=== PATIENT | male | born 1995 | race Two or more races ===

== ENCOUNTER 2018-07-22 08:18 | Inpatient (IN) | payer OTHER ==
--- NOTE | 2018-07-21 15:19 | NUR ---
[employer] translation services used to obtained medical hystory with chemicals distiller Arianna ID # [id number].
[~2018-07-22] VITALS: Ht 172.7 cm; Wt 63.5 kg
[2018-07-22] VITALS (11 sets, daily range): BP systolic 96–132; BP diastolic 48–74
[~2018-07-22 08:18] MED LIST: Bacitracin 50000 Units Vial ONE; Gelfoam Size TOPIC ONE; NKM; Ropivacaine 5mg/ml Vial 30ml INJ ONE; Thrombin 5000 units TOPIC ONE; Vancomycin 1gm vial IVPB ONE; ceFAZolin sod 2 GM in D5W 110 ML IVPB ONE
[2018-07-22] MEDS ORDERED: fentaNYL 100 mcg/2 mL IV ONE (09:10)
[2018-07-22] MEDS ORDERED: Midazolam 2mg/2ml Inj ONE (09:10)
[2018-07-22] MEDS ORDERED: Lidocaine 1% MPF 10mg/ml 5ml ONE (09:19)
[2018-07-22] MEDS ORDERED: Propofol 1,000mg/ 100ml btl IV ONE (10:00)
[2018-07-22] MEDS ORDERED: Rocuronium Bromide 50mg/5ml Inj IV ONE (10:09)
[2018-07-22] MEDS ORDERED: TransDerm Scop 1.5mg/72HR Patch TDERMAL ONE (10:09)
[2018-07-22] MEDS ORDERED: Succinylcholine 20mg/ml 10ml vial ONE (10:10)
--- NOTE | 2018-07-22 11:50 | Pre-Procedure Note/Attestation ---
Pre-Procedure Note/Attestation Complete Prior to Procedure Planned Procedure: left Procedure Narrative: Left sided L45, L5S1 microdiscectomy hemilaminotomy foraminotomy baxano decompression Indications for Procedure Pre-Operative Diagnosis: Herniation L45,5S1, foraminal stenosis Attestation I attest that I discussed the nature of the procedure; its benefits; risks and complications; and alternatives (and the risks and benefits of such alternatives ), prior to the procedure, with the patient (or the patient's legal parts counter representative). I attest that, if there was a reasonable possibility of needing a blood transfusion, the patient (or the patient's legal parts counter representative) was given the [place] Department of [employer] Services standardized written summary, pursuant to the Apolinar Nisha Blood Safety Act ([place] Health and Safety Code # 1645, as amended). I attest that I re-evaluated the patient just prior to the surgery and that there has been no change in the patient's H&P, except as documented below: Taj Duran MD July 22, 2018 11:50
--- NOTE | 2018-07-22 11:51 | Brief Operative Note ---
Immediate Post Operative Note Operative Note Chief Complaint: Leg pain left radic, back pain Pre-op Diagnosis: Herniation L45,5S1, foraminal stenosis Procedure: Left sided L45, L5S1 microdiscectomy hemilaminotomy foraminotomy baxano decompression Post-op Diagnosis: same as pre-op Findings: consistent w/pre-op dx studies Surgeon: Renee Housing Case Manager: Luis Armando Anesthesiologist: YONI Anesthesia: general Specimen: none Complications: none Condition: stable Fluids: ivf Estimated Blood Loss: minimal Drains: none Implant(s) used?: Taj Joyner MD July 22, 2018 11:51
[2018-07-22] MEDS ORDERED: Glycopyrrolate 0.2mg/ml 1ml Vial ONE (12:00)
[2018-07-22] MEDS ORDERED: Neostigmine 1mg/ml 10ml Inj ONE (12:00)
[2018-07-22] MEDS ORDERED: Ketorolac 30mg Inj ONE (12:00)
[2018-07-22] MEDS ORDERED: LR 1000ml ONE (12:00)
[2018-07-22] MEDS ORDERED: Morphine Sulfate 10mg/ml Inj ONE (13:10)
--- NOTE | 2018-07-22 13:23 | Anethesia Preoperative Eval ---
Anesthesia Pre-op PMH/ROS General Date of Evaluation: July 22, 2018 Time of Evaluation: 12:08 Anesthesiologist: Jamin ASA Score: ASA 2 Mallampati Score Class I : Soft palate, uvula, fauces, pillars visible Class II: Soft palate, uvula, fauces visible Class III: Soft palate, base of uvula visible Class IV: Only hard plate visible Mallampati Classification: Class II Surgeon: Renee Diagnosis: Lumbar radiculopathy Surgical Procedure: L4 to S1 laminotomy Anesthesia History: none Family History: no anesthesia problems Allergies: Coded Allergies: No Known Allergies (Unverified , 07/21/18) Medications: see eMAR Patient NPO?: Yes NPO Date: July 21, 2018 NPO Time: 2229 Past Medical History Cardiovascular: Denies: HTN, CAD, ME, valve dz, arrhythmia, other Pulmonary: Denies: asthma, COPD, VALERIANO, other Gastrointestinal/Genitourinary: Reports: GERD; Denies: CRI, ESRD, other Neurologic/Psychiatric: Denies: dementia, CVA, depression/anxiety, TIA, other Endocrine: Denies: DM, hypothyroidism, steroids, other HEENT: Denies: cataract (L), cataract (R), glaucoma, EKUK (L), EKUK (R), other Hematology/Immune: Denies: anemia, DVT, bleeding disorder, other Musculoskeletal/Integumentary: Denies: OA, RA, DJD, DDD, edema, other PMH Narrative: as above PSxH Narrative: None Anesthesia Pre-op Phys. Exam Physician Exam Last Vital Signs Date Time Temp Pulse Resp B/P (MAP) Pulse Ox O2 Delivery O2 Flow Rate FiO2 07/22/18 09:32 Room Air 07/22/18 09:14 98.1 71 20 108/69 (82) 99 Constitutional: NAD Neurologic: CN 2-12 intact Cardiovascular: RRR, no M/R/G Respiratory: CTA Gastrointestinal: S/NT/ND Airway Exam Mallampati Score: Class II MO: full Neck: flexible ROM: full Teeth: intact Dentures: no upper, no lower Anesthesia Pre-op A/P Labs see chart Studies Pre-op Studies: EKG - NSR Risk Assessment & Plan Assessment: ASA 2 Plan: GA with ETT prone position neuromonitoring Status Change Before Surgery: No Pre-Antibiotics Drug: Ancef 2gr Given Within 1 Hr of Incision: Yes Time Given: 12:46 Michael Neville MD July 22, 2018 13:23
[2018-07-22] MEDS ORDERED: LR 1000ml 1,000 ML IVLG SCH (13:24)
[2018-07-22] MEDS ORDERED: Sodium Chloride 10ml vial INJ ONE (13:29)
[2018-07-22] MEDS ORDERED: ePHEDrine 50mg/ml Inj ONE (13:29)
[2018-07-22] MEDS ORDERED: Midazolam 2mg/2ml Inj IVP PRN (13:30)
[2018-07-22] MEDS ORDERED: Meperidine 50mg/ml Inj(FOR RIGORS ONLY) IV PRN ×2 (13:30→15:00)
[2018-07-22] MEDS ORDERED: Ketorolac 30mg Inj IV PRN (13:30)
[2018-07-22] MEDS ORDERED: Acetaminophen (Non formulary) 100 ML IV ONE (13:30)
[2018-07-22] MEDS ORDERED: DiphenhydrAMINE 50mg/ml Inj IVP PRN (13:30)
[2018-07-22] MEDS ORDERED: Metoclopramide 10mg/2ml Inj IVP PRN ×3 (13:30→15:33)
[2018-07-22] MEDS ORDERED: Hydromorphone 0.5mg/0.5ml inj IVP PRN (13:30)
[2018-07-22] MEDS ORDERED: Thrombin 5000 units TOPIC ONE (13:47)
--- NOTE | 2018-07-22 14:38 | Immediate Post-Op Evaluation ---
Immediate Post-Op Evalulation Immediate Post-Op Evalulation Procedure: L4 to S1 laminotomy with decompression and Baxano foraminotomy Date of Evaluation: July 22, 2018 Time of Evaluation: 14:37 IV Fluids: 1000 Blood Products: none Estimated Blood Loss: 50 Urinary Output: 200 Blood Pressure Systolic: 104 Blood Pressure Diastolic: 58 Pulse Rate: 75 Respiratory Rate: 20 O2 Sat by Pulse Oximetry: 99 Temperature (Fahrenheit): 97.6 Pain Score (1-10): 1 Nausea: No Vomiting: No Complications none Patient Status: patent, extubated, none Hydration Status: adequate Michael Neville MD July 22, 2018 14:38
[2018-07-22] MEDS ORDERED: Meperidine 50mg/ml Inj(FOR RIGORS ONLY) ONE (15:00)
[2018-07-22] MEDS ORDERED: Naloxone 0.4mg/ml Inj IVP PRN (15:33)
[2018-07-22] MEDS ORDERED: Milk of Magnesia 30ml Ud ORAL PRN (15:34)
--- NOTE | 2018-07-22 15:35 | NUR ---
NURSE NOTES: Patient received from PACU via bed to 320-2 at 1535. Patient alert, oriented x4, calm. German speaking, girlfriend at bedside, manager hydraulic. No SOB on O2 2LNC, no NV. Reports pain to lower back 4/10, ice pack to lower back. Back dressing CDI. Instructed on proper alignment and log rolling. Called RT for IS, instructed patient on CDB and ankle ROM. IVF infusing to right hand as ordered. Bilateral SCDs on. CMS+, skin warm, wiggles toes, no NT, pedal pulses palpable, capillary refill <3 seconds. Oriented patient to room. Call light in reach, bed in lowest position, will continue to monitor.
[2018-07-22] MEDS ORDERED: Chloraseptic Spray 20mL Bottle ORAL PRN (15:36)
[2018-07-22] MEDS ORDERED: HYDROmorphone 1mg/ml Carpuject IVP PRN (15:37)
[2018-07-22] MEDS ORDERED: HYDROcodone/Acetamin 7.5/325 tab ORAL PRN (15:37)
[2018-07-22] MEDS ORDERED: HYDROcodone/Acetamin 5/325 tab ORAL PRN (15:37)
--- NOTE | 2018-07-22 15:37 | NUR ---
CASE MANAGEMENT:REVIEW 23 YR OLD MALE HERE FOR ELECTIVE SURGERY SI: SPINAL HERNIATION AND STENOSIS 98.1 71 20 108/69 99% ON RA IS: TO SURGERY FOR: MICRODISCECTOMY HEMILAMINOTOMY FORAMINOTOMY BAXANO DECOMPRESSION : TO MED/SURG 3 EAST POST OP
[2018-07-22] MEDS ORDERED: Morphine Sulfate 4mg/ml Inj (IV USE ONLY) IV PRN ×2 (15:38)
[2018-07-22] MEDS ORDERED: Morphine Sulfate 2mg/ml Inj(IV/IM USE ONLY) IV PRN (15:39)
[2018-07-22] MEDS: NS w/KCl 20mEq 1000ml 1,000 ML IV SCH (16:35)
--- NOTE | 2018-07-22 17:22 | 48 Hour Post Anesthesia Eval ---
Post Anesthesia Evaluation Procedure: L4 to S1 laminotomy with decompression and Baxano foraminotomy Date of Evaluation: July 22, 2018 Time of Evaluation: 17:20 Blood Pressure Systolic: 124 0: 76 Pulse Rate: 72 Respiratory Rate: 20 Temperature (Fahrenheit): 97.8 O2 Sat by Pulse Oximetry: 98 Airway: patent Nausea: No Vomiting: No Pain Intensity: 3 Hydration Status: adequate Cardiopulmonary Status: stable Mental Status/LOC: patient returned to baseline Follow-up Care/Observations: n/a Post-Anesthesia Complications: none Follow-up care needed: ready to discharge Michael Neville MD July 22, 2018 17:22
[2018-07-22] MEDS: Dexamethasone 4mg/ml vial IVP SCH (18:01)
[2018-07-22] MEDS: Docusate 100mg cap ORAL SCH (18:01)
--- NOTE | 2018-07-22 19:55 | NUR ---
HAND-OFF: Report given to Ewa RAPHAEL.
--- NOTE | 2018-07-22 20:00 | NUR ---
NURSE NOTES: PATIENT IN BED. ON O2 2L VIA N/C. NO SOB, NO ACUTE DISTRESS. IV ON RH INTACT, PATENT RUNNING IVF. BED IN LOWEST POSITION, LOCKED, ALARMS ON. CALL LIGHT IN REACH.
[2018-07-22] MEDS: ceFAZolin sod 1 GM in D5W 55 ML IV SCH (21:18)
[2018-07-22] MEDS: HYDROcodone/Acetamin 7.5/325 tab ORAL PRN (22:35)
[2018-07-23] VITALS: BP 100/55
[2018-07-23] MEDS: Dexamethasone 4mg/ml vial IVP SCH ×2 (00:08→05:32)
[2018-07-23] MEDS: NS w/KCl 20mEq 1000ml 1,000 ML IV SCH (02:32)
[2018-07-23 04:00] VITALS: BP 100/57
[2018-07-23] MEDS: ceFAZolin sod 1 GM in D5W 55 ML IV SCH (05:00)
--- NOTE | 2018-07-23 07:25 | NUR ---
HAND-OFF: Report given to HALIMA RAPHAEL.
--- NOTE | 2018-07-23 07:30 | NUR ---
NURSE NOTES: AWAKE.ALERT. PAIN SCALE 5/10. GIVEN NORCO 7.5/325 1 TAB PO. BACK DRESSING DRY AND INTACT. NO NUMBNESS /TINGLING BLE. IN NO DISTRESS.
[2018-07-23] MEDS: HYDROcodone/Acetamin 7.5/325 tab ORAL PRN (07:40)
[2018-07-23 08:00] VITALS: BP 112/64
--- NOTE | 2018-07-23 08:00 | General Progress Note ---
Assessment/Plan Assessment/Plan: Herniation L45,5S1, foraminal stenosis Left sided L45, L5S1 microdiscectomy hemilaminotomy foraminotomy baxano decompression PLAN 1. incentive spirometry 2.SCDs 3. PT evaluation and therapy 4. Hydration 5. Pain management 6. discharge once stable with outpatient follow up Subjective Allergies: Coded Allergies: No Known Allergies (Unverified , 07/21/18) Subjective asked to follow Objective Last 24 Hour Vital Signs Date Time Temp Pulse Resp B/P (MAP) Pulse Ox O2 Delivery O2 Flow Rate FiO2 07/23/18 07:33 98 Nasal Cannula 3.0 32 07/23/18 07:33 Nasal Cannula 3.0 32 07/23/18 04:00 98.0 82 20 100/57 (71) 99 07/23/18 00:00 98.8 71 20 100/55 (70) 98 07/22/18 21:00 Room Air 07/22/18 20:00 97.9 78 18 107/60 (76) 98 07/22/18 17:22 72 20 98 07/22/18 17:00 98.4 95 20 132/74 (93) 97 07/22/18 16:15 97.7 88 20 116/74 (88) 100 07/22/18 15:45 97.4 07/22/18 15:30 97.4 78 18 107/56 100 Nasal Cannula 3 07/22/18 15:20 82 15 105/57 100 Nasal Cannula 3 07/22/18 15:00 84 17 106/64 100 Nasal Cannula 3 07/22/18 14:50 89 16 115/65 100 Nasal Cannula 3 07/22/18 14:40 84 16 107/61 100 Simple Mask 6 07/22/18 14:38 80 15 104/58 100 Simple Mask 6 07/22/18 14:38 75 20 99 07/22/18 14:36 97.1 73 14 96/48 100 Simple Mask 6 07/22/18 09:51 100 Nasal Cannula 3.0 32 07/22/18 09:51 Nasal Cannula 3.0 32 07/22/18 09:32 Room Air 07/22/18 09:14 98.1 71 20 108/69 (82) 99 Intake and Output 07/22/18 07/23/18 19:00 07:00 Intake Total 2209 ml 1360 ml Output Total 250 ml 800 ml Balance 1959 ml 560 ml Intake Oral 709 ml 300 ml IV Total 1500 ml 1060 ml Output Urine Total 200 ml 800 ml Estimated Blood Loss 50 ml # Voids 1 2 Height (Feet): 5 Height (Inches): 8.00 Weight (Pounds): 140 Objective WDWN NAD clear breath sounds bilaterally without rhonchi or wheeze [id number] without MRG NABS nontender no HSM no CCE nonfocal Umang eBrger MD July 23, 2018 08:00
[2018-07-23] MEDS: Docusate 100mg cap ORAL SCH (08:29)
[2018-07-23] MEDS ORDERED: SOMA350 MG PO (08:48)
[2018-07-23] MEDS ORDERED: NORCO 10-325 T1 EACH ORAL (08:48)
--- NOTE | 2018-07-23 09:30 | NUR ---
NURSE NOTES: DISCHARGED HOME ACCPD BY GIRLFRIEND IN STABLE CONDITION. DC INSTRUCTIONS AND RX GIVEN.
--- NOTE | 2018-07-23 21:30 | Operative Note - Dictated ---
DATE OF OPERATION: 07/22/2018 SURGEON: Taj Duran MD, Orthopaedic Spine Surgeon. BEHAVIOUR SUPPORT TEACHER SURGEON: Franco Durán M.D. ANESTHESIA: General endotracheal anesthesia. PREOPERATIVE DIAGNOSES: 1. Intractable back pain. 2. Intractable leg pain. 3. Worsening radiculopathy. 4. Weakness. 5. Herniated nucleus pulposus, L4-L5, L5-S1 herniation. 6. Neural foraminal stenosis, L4-L5, L5-S1. POSTOPERATIVE DIAGNOSES: 1. Intractable back pain. 2. Intractable leg pain. 3. Worsening radiculopathy. 4. Weakness. 5. Herniated nucleus pulposus, L4-L5, L5-S1 herniation. 6. Neural foraminal stenosis, L4-L5, L5-S1. PROCEDURES PERFORMED: 1. Left-sided L4-L5, L5-S1 microdiscectomy. 2. L4-L5, L5-S1 hemilaminotomy, foraminotomy, and medial facetectomy. 3. L4-L5, L5-S1 neural foraminotomy through a transpedicular intraforaminal approach. 4. Use of intraoperative microscope. 5. Supervision and interpretation of intraoperative fluoroscopy. 6. Supervision and interpretation of somatosensory-evoked potential and free-running EMG monitoring. ESTIMATED BLOOD LOSS: Less than 100 mL. COMPLICATIONS: None. INDICATIONS FOR THE PROCEDURE: Murtaza presents for intractable back pain and radiculopathy. The patient tried and failed a prolonged course of conservative management, including but not limited to chiropractic therapy, physical therapy, nonsteroidal anti-inflammatory drugs, medication, ice packs as well as epidural injection. Despite these therapies, the patient still developed recalcitrant pain and elected for definitive management in the form of left-sided L4-L5 and L5-S1 microdiscectomy; L4-L5 and L5-S1 hemilaminotomy, foraminotomy, and medial facetectomy; L4-L5 and L5-S1 neural foraminotomy through a transpedicular intraforaminal approach. We had a long discussion with him regarding definitive surgical treatment options. The patient's MRI demonstrated herniated nucleus pulposus, L4-L5 and L5-S1 herniation; neural foraminal stenosis, L4-L5 and L5-S1, and as a result, I felt he would benefit from the discectomy as well as neural foraminotomy at this level. We had a long discussion with the patient regarding the risks, alternatives, and benefits of surgery. Our description of the risks included a discussion in person as well as a signed consent which detailed all pertinent risks and the procedure itself. Briefly, our discussion included but was not limited to infection, bleeding, pseudarthrosis, spinal cord injury, neurovascular injury, dural tear, CSF leak, neuropathy, paralysis, permanent weakness/drop foot, paresthesias blindness, palsy, and weakness. The patient understood there may be a need for revision surgery or additional procedures. Approach-related complications including dysphonia, dysphagia, blindness, permanent vocal cord and neural injury, hematoma, swallowing and breathing difficulty. Medical complications including liver, kidney, shock, and cardiopulmonary failure. Anesthesia complications including , swelling. Damage to the musculature, larynx (voice injury or loss),esophagus (throat), trachea, blood vessels and muscles (muscular sprain) and lungs (pneumothorax) during this surgical procedure. Injury to deeper structures may be temporary or permanent. The patient understood these and elected to proceed. A written and verbal consent was given. We discussed the pros and cons of all the alternatives. We discussed the uncertainties associated with the decision. Afterwards I assessed the patient's understanding and explored their preferences. All questions were answered and no guarantees were given. Medical clearance was obtained prior to surgery. OPERATIVE FINDINGS: At L4-L5, there was a tear noted in the posterior longitudinal ligament cephalad to caudad of approximately 30 degrees. Through the tear, there was a soft, mobile, free fragment of disc at L4-L5 which appeared larger than seen on the MRI. This herniated fragment was encroaching already on the neural elements and thecal sac. Next, at L5-S1, there was a tear in the posterior longitudinal ligament at approximately 40 degrees cephalad to caudad. There was a tear with a broader disc which appeared larger than had been seen on the MRI. This was encroaching on the thecal sac and neural elements as well there. DESCRIPTION OF PROCEDURE: Under the benefit of general endotracheal anesthesia and with the assistance of the entire operative team, the patient was moved from the rney onto the operative table in the prone position on a Ez frame. The head was secured and positioned appropriately. Bilateral arms were secured with Gel Pads and foam and all bony prominences were padded. The bilateral lower extremity SCD and AMAURY hose were placed for DVT prophylaxis. A surgical timeout was called which corroborated our planned procedure. Preoperative antibiotics were administered within 30 minutes of the incision for prophylaxis. Decadron was given for preoperative steroids. Using lateral radiography, the operative levels were delineated. An incision was marked based on our interpretation of lateral radiography and afterwards the body was prepped and draped in the usual sterile manner. The family was notified that we were ready to commence surgery and were called in the waiting room hourly for updates. An incision was based on our lateral fluoroscopic image to center the incision at the L5-S1 interspace. The wound was prepped and draped in the usual sterile fashion. Using a scalpel, a midline incision was taken down through the skin and subcutaneous tissues until the overlying hemilaminae of L4-L5 and L5-S1 were visualized. Next, using meticulous hemostasis, hemilamotomies were dissected, and retractors were placed. Using a [employer] dental, we confirmed placement at the L4-L5 and L5-S1 interspace. We next turned our attention to our decompression. A standard hemilaminotomy, foraminotomy, and medial facetectomy was performed at each level in standard fashion using a Midas-Sidney type AM8 drill bit, straight and angled curettage, and Kerrison 4 rongeurs until the lateral thecal sac margin and traversing nerve root was visualized. All remainders of the ligamentum flavum and lateral bony margins were resected in total with angled curettage and Kerrison 4 rongeurs until the lateral thecal sac margin and traversing nerve root was visualized and decompressed. We next turned our attention toward our L4-L5 and L5-S1 microdiscectomy on the left side. A Anderson 4 was used to gently mobilize the thecal sac medially and this was held retracted with a bayonetted nerve root retractor. It was at this point that we noted a large broad-based disc protrusion with encroachment dorsally on the thecal sac neural foraminal contents. A bayonet and nerve root retractor was then placed carefully to retract the thecal sac and a discectomy was performed using a combination of a long handled 15 blade scalpel, downgoing and straight pituitaries, and downgoing curettage. Afterward the disc space was irrigated twice with 20 mL of antibiotic-impregnated saline. All loose and free-floating disc fragments were carefully resected with a narrow pituitary. Having been satisfied with our decompression after our discectomy of all neural elements, we next turned our attention to our neural foraminoplasty/foraminotomy. This was performed through a transpedicular intraforaminal approach using an access probe followed by a neuro-check device, which confirmed ventral placement of our nerve root. Once we confirmed we were safe, we next turned our attention towards placement of our size 10 file under direct microscopic visualization and under lateral fluoroscopy. Using pre-reciprocation and post-reciprocation imaging, we were able to visualize our direct decompression given the reciprocation allowed for re-creation of the neural foraminal arch at L4-L5 and L5-S1. Afterwards hemostasis was obtained with 60 mL of antibiotic-impregnated saline followed by FloSeal and Gelfoam. After sponge and needle count were found to be correct, next we turned our attention to closure. Closure consisted of 1-0 Vicryl in standard interrupted fashion. Zosyn was placed deep to the fascia and superficial to the fascia for antibiotic prophylaxis. Skin closure was performed with 2-0 Vicryl in interrupted fashion followed by running Monocryl for the skin. Final dressings consisted of Dermabond for the superficial skin, Telfa, and Tegaderm. The patient tolerated the procedure well. The patient was extubated after the conclusion of surgery without incident. We discussed the findings of the surgery with the family upon completion of the case. At this point, the patient will be transferred to the spine floor for further observation. Taj Duran M.D. DR: Nadia JOB#: [id number] CC: MINESH
--- NOTE | 2018-07-25 14:32 | Discharge Summary ---
Discharge Summary Hospital Course Date of Admission July 22, 2018 at 08:18 Date of Discharge July 23, 2018 at 09:25 Admitting Diagnosis Herniation L4-5, L5- S1, foraminal stenosis Reason for Hospitalization: elective surgery HPI Murtaza Tee is a 23 year old male who was admitted on July 22, 2018 at 08:18 for Herniated Nucleus Pulposus,Pain,Radiculopathy. Patient presented with intractable back pain and radiculopathy. The patient tried and failed a prolonged course of conservative management, including but not limited to chiropractic therapy, physical therapy, nonsteroidal anti-inflammatory drugs, medication, ice packs as well as epidural injection. Despite these therapies, the patient still developed recalcitrant pain and elected for definitive management in the form of left-sided L4-L5 and L5-S1 microdiscectomy; L4-L5 and L5-S1 hemilaminotomy, foraminotomy, and medial facetectomy; L4-L5 and L5-S1 neural foraminotomy through a transpedicular intraforaminal approach. Patient was admitted for elective surgery. Consultations Dr Berger /IM Procedures s/p 07/22/[address] Duran 1. Left-sided L4-L5, L5-S1 microdiscectomy. 2. L4-L5, L5-S1 hemilaminotomy, foraminotomy, and medial facetectomy. 3. L4-L5, L5-S1 neural foraminotomy through a transpedicular intraforaminal approach. 4. Use of intraoperative microscope. 5. Supervision and interpretation of intraoperative fluoroscopy. 6. Supervision and interpretation of somatosensory-evoked potential and free-running EMG monitoring. Hospital Course status post surgery course of recovery uneventful initially IV fluids s/p perioperative antibiotics neurovascular status closely monitored, remained stable incision clean , dry, and intact pain management addressed , and pain was controlled remained hemodynamically stable ambulated with PT fall precautions maintained; safe for ambulation DVT prophylaxis provided with SCD use of incentive spirometry was encouraged while in the bed tolerated diet , IV fluids discontinued GI prophylaxis provided antiemetics were on board as needed voided freely bowel regimen instituted patient was stable for discharge discharge instructions provided follow up with surgeon as outpatient as advised by surgeon FINAL DIAGNOSES 1. Intractable back pain. 2. Intractable leg pain. 3. Worsening radiculopathy. 4. Weakness. 5. Herniated nucleus pulposus, L4-L5, L5-S1 herniation. 6. Neural foraminal stenosis, L4-L5, L5-S1. 7. s/p Left-sided L4-L5, L5-S1 microdiscectomy. L4-L5, L5-S1 hemilaminotomy, foraminotomy, and medial facetectomy. L4-L5, L5-S1 neural foraminotomy through a transpedicular intraforaminal approach. Discharge Medications Continued Medications: Carisoprodol* (Soma*) 350 Mg Tablet 350 MG PO BID, #90 TAB (This prescription has been renewed) Hydrocodone Bit/Acetaminophen 10-325* ([place] 10-325*) 1 Each Tablet 1 TAB ORAL Q8HR PRN for For Pain, #90 TAB 0 Refills (This prescription has been renewed) PRN PAIN Discharge Condition Upon Discharge: stable Discharge Disposition Patient was discharged home Discharge Instructions Discharge Instructions Special Instructions I have been assigned to complete a D/C Summary on this account. I was not involved in the patient management Vita Rush NP July 25, 2018 14:32
--- NOTE | 2018-07-27 11:15 | Discharge Summary ---
DATE OF ADMISSION: 07/22/2018 DATE OF DISCHARGE: 07/23/2018 PROCEDURE PERFORMED DURING ADMISSION: Left-sided microdiscectomy, hemilaminotomy, and decompression with foraminotomy. REASON FOR ADMISSION: L4-L5 and L5-S1 disc herniations. HOSPITAL COURSE/TREATMENT RENDERED: DISCHARGE PHYSICAL EXAMINATION: 1. The patient was ambulating with and without the assistance of physical therapy. 2. Prior to discharge home incision was clean and dry with minimal swelling. 3. Follows commands. 4. Alert and oriented. 5. Spear discontinued, voiding. 6. Incentive spirometer at bedside. 7. IVF hep locked. MOTOR: Demonstrates expected postoperative bulk and tone. Moves biceps, triceps, and deltoid musculature on command. Moves hip flexors, quadriceps, tibialis anterior, EHL, gastrocsoleus musculature on command as well. TREATMENT RENDERED: 1. Daily nursing care. 2. Physical Therapy. 3. Occupational Therapy. 4. Intravenous medications. 5. Oral medications. 6. Daily postoperative examinations by Spine surgery team. CONDITION OF PATIENT ON DISCHARGE: The condition on discharge is stable for discharge to home. DISCHARGE INSTRUCTIONS: Our specific instructions relating to physical activity, medications, diet, and followup care are detailed in our standard operative folder and were given to this patient prior to surgery. We will however summarize these briefly as stated below. Regarding physical activity, we would like the patient to limit their flexion, extension, and rotation. We also require a limitation on their bending, lifting, and twisting. All medication has been called in prior to surgery to their pharmacy of choice. They can resume their regular diet once tolerated. We would like them to shower and limit soaking the wound in a tub/Jacuzzi/the ocean for a period of one month or until the incision is completely healed. We will have them follow up in our office in three weeks' time for their regularly scheduled appointment. They understand to call our office tomorrow to schedule the time for their three week followup appointment. The patient will notify us should they experience any increase in the severity of pain, redness/swelling/ or drainage from their incision. Taj Duran M.D. DR: ANAI JOB#: [id number] CC:
--- NOTE | 2018-08-26 16:43 | Diagnostic Imaging Report ---
INDICATION: Pain, intraoperative TECHNIQUE: Intraoperative imaging Fluoroscopy time: 8.3 seconds Total dose: 0.4376 mGym2 Total number of images: 2 COMPARISON: None FINDINGS: Intraoperative images demonstrate deployment of the Baxano device at what is presumably the L5-S1 level IMPRESSION: Intraoperative imaging, as described
== END 2018-07-23 09:25 | disposition home or self-care (01) | DRG 520 ==
LOC: SDSOVERFLO 08:18 → 3E 14:26
DX: M51.16 Intervertebral disc disorders with radiculopathy, lumbar region (principal); M51.17 Intervertebral disc disorders with radiculopathy, lumbosacral region; M48.061 Spinal stenosis, lumbar region without neurogenic claudication; M48.07 Spinal stenosis, lumbosacral region; V29.9XXS Motorcycle rider (driver) (passenger) injured in unspecified traffic accident, sequela
CPT/HCPCS: 36415; 72020; 76000; 86850; 86900; 86901; 87081; 94003; 94150; 94760; J2250; J2405; J2710; J2765